=== PATIENT | female | born 1935 | race Caucasian/White ===

== ENCOUNTER 2021-12-14 13:21 | Emergency (ER) | payer OTHER, MEDICAID ==
[~2021-12-14] VITALS: Ht 154.9 cm; Wt 63.5 kg
--- NOTE | 2021-12-14 13:30 | NUR ---
pt c/o SOB, 2+ edema RLE x2 weeks . Seen by Placed on N/C 2L, threat monitoring analyst. Pt denies pain at this time.
[2021-12-14 15:05] LABS: HEMATOCRIT 43.4 % (31.2-41.9); MEAN CORPUSCULAR VOLUME 95.1 fL (75.5-95.3); PLATELET COUNT (AUTO) 152 K/uL (179-408)
[2021-12-14] MEDS ORDERED: FAMO40TA7 PO (15:08)
[2021-12-14] MEDS ORDERED: MONT10TA22 PO (15:08)
[2021-12-14] MEDS ORDERED: ATOR10TA PO (15:08)
[2021-12-14] MEDS ORDERED: PRED20TA PO (15:08)
[2021-12-14] MEDS ORDERED: PANT40TA49 PO (15:08)
[2021-12-14] MEDS ORDERED: LORA0.5T48 PO (15:08)
[2021-12-14] MEDS ORDERED: SITA1TAB2 PO (15:08)
[2021-12-14] MEDS ORDERED: ALBUTEROL SULFATE 2.5 MG/3 ML NEBU ONE (15:13)
[2021-12-14] MEDS ORDERED: ALBUTEROL SULFATE 2.5 MG/3 ML NEBU NEB ONE (15:15)
[2021-12-14] MEDS ORDERED: IV NORMAL SALINE 250 ML IV ONE (15:18)
[2021-12-14] MEDS ORDERED: SWABABLE VALVE TRANSFER SET EA MC ONE (15:18)
[2021-12-14] MEDS ORDERED: IOHEXOL 350 100 ML INFUS..BTL ONE (15:18)
[2021-12-14 15:27] LABS: CARBON DIOXIDE 33 mmol/L (21-32); CHLORIDE 104 mmol/L (98-107); CREATININE 0.8 mg/dL (0.6-1.3); GLUCOSE 196 mg/dL (74-106); POTASSIUM 4.3 mmol/L (3.5-5.1); UREA NITROGEN, BLOOD 6 mg/dL (7-18)
[2021-12-14 15:44] LABS: ALANINE AMINOTRANSFERASE 41 U/L (14-59); ALKALINE PHOSPHATASE 33 U/L (50-136); ASPARTATE AMINOTRANSFERASE 19 U/L (15-37); BILIRUBIN,DIRECT 0.1 mg/dL (0.0-0.2); BILIRUBIN,TOTAL 0.3 mg/dL (0.2-1.0); TOTAL PROTEIN, SERUM 6.6 g/dL (6.4-8.2)
--- NOTE | 2021-12-14 16:38 | NUR ---
MD AT BEDSIDE TO DISCUSS PLAN OF CARE AND RESULTS TO PT.
[2021-12-14] MEDS ORDERED: DOXY100C5 PO (16:44)
--- NOTE | 2021-12-14 17:50 | NUR ---
Patient discharged to home in stable condition. Written and verbal after care instructions given. Patient verbalizes understanding of instructions. Stressed follow up or return to ER for worsening s/s.
[2021-12-14 18:07] VITALS: BP 147/80
== END 2021-12-14 17:51 | disposition home or self-care (01) ==
LOC: ER 13:21
DX: M79.89 Other specified soft tissue disorders (principal); J44.0 Chronic obstructive pulmonary disease with (acute) lower respiratory infection; J18.9 Pneumonia, unspecified organism; Z99.81 Dependence on supplemental oxygen; Z79.899 Other long term (current) drug therapy; Z91.041 Radiographic dye allergy status
CPT/HCPCS: 36415; 71045; 84484; 85025; 93005; A4663; Q9967

== ENCOUNTER 2022-01-07 18:03 | Inpatient (IN) | payer OTHER ==
[~2022-01-07] VITALS: Ht 157.5 cm; Wt 68.0 kg
[~2022-01-07 18:03] MED LIST: ATOR10TA PO; DOXY100C5 PO; FAMO40TA7 PO; LORA0.5T48 PO; MONT10TA22 PO; PANT40TA49 PO; PRED20TA PO; SITA1TAB2 PO
[2022-01-07] MEDS ORDERED: IPRATROPIUM BROMIDE 0.5 MG/2.5 ML NEBU NEB STA (18:48)
[2022-01-07] MEDS ORDERED: ALBUTEROL SULFATE 2.5 MG/3 ML NEBU NEB STA (18:48)
[2022-01-07] MEDS ORDERED: predniSONE 10 MG TABLET PO ONE (19:00)
[2022-01-07] MEDS ORDERED: ALBUTEROL SULFATE 2.5 MG/ 0.5 ML NEBU ONE (19:01)
[2022-01-07] MEDS ORDERED: IPRATROPIUM BROMIDE 0.5 MG/2.5 ML NEBU ONE ×2 (19:02→20:32)
[2022-01-07] MEDS ORDERED: ALBUTEROL SULFATE 2.5 MG/3 ML NEBU ONE ×3 (19:02→20:32)
[2022-01-07] MEDS ORDERED: ALBU2.5V13 IH (19:06)
[2022-01-07] MEDS ORDERED: IPRA12.9 INH (19:06)
[2022-01-07 19:31] LABS: HEMATOCRIT 40.6 % (31.2-41.9); MEAN CORPUSCULAR HEMOGLOBIN 31.3 uug (24.7-32.8); MEAN CORPUSCULAR VOLUME 95.6 fL (75.5-95.3); PLATELET COUNT (AUTO) 159 K/uL (179-408)
[2022-01-07] MEDS ORDERED: predniSONE 20 MG TABLET ONE (19:37)
[2022-01-07 19:44] LABS: CARBON DIOXIDE 30 mmol/L (21-32); CHLORIDE 103 mmol/L (98-107); CREATININE 0.8 mg/dL (0.6-1.3); GLUCOSE 197 mg/dL (74-106); POTASSIUM 4.3 mmol/L (3.5-5.1); UREA NITROGEN, BLOOD 7 mg/dL (7-18)
[2022-01-07] MEDS ORDERED: levoFLOXacin 750 MG TABLET PO ONE (19:45)
[2022-01-07 19:54] LABS: ALANINE AMINOTRANSFERASE 34 U/L (14-59); ALKALINE PHOSPHATASE 33 U/L (50-136); ASPARTATE AMINOTRANSFERASE 11 U/L (15-37); BILIRUBIN,DIRECT < 0.1 mg/dL (0.0-0.2); BILIRUBIN,TOTAL 0.3 mg/dL (0.2-1.0); TOTAL PROTEIN, SERUM 6.1 g/dL (6.4-8.2)
[2022-01-07] MEDS ORDERED: levoFLOXacin 750 MG TABLET ONE (20:06)
[2022-01-07] MEDS ORDERED: FUROSEMIDE 20 MG/2 ML VIAL IV ONE (20:15)
[2022-01-07 20:25] LABS: *BILIRUBIN,URIN NEGATIVE (NEGATIVE); *BLOOD, URINE NEGATIVE (NEGATIVE); *CLARITY,URINE CLEAR (CLEAR); *COLOR,URINE YELLOW (YELLOW); *KETONES,URINE NEGATIVE (NEGATIVE); *UROBILINOGEN,URINE 0.2 E.U./dl (NORMAL); LEUKOCYTE ESTERASE ,URINE NEGATIVE (NEGATIVE); NITRITE, URINE NEGATIVE (NEGATIVE); UGLUCOSE TRACE (NEGATIVE)
[2022-01-07] MEDS ORDERED: FUROSEMIDE 20 MG/2 ML VIAL ONE (20:43)
[2022-01-07] MEDS ORDERED: ACETAMINOPHEN 650 MG/20.3 ML LIQUID UDC PO PRN (23:45)
[2022-01-07] MEDS ORDERED: ALBUTEROL SULFATE 1.25 MG/3 ML NEBU NEB PRN (23:45)
[2022-01-07] MEDS ORDERED: ONDANSETRON 4 MG/2 ML VIAL IV PRN (23:45)
[2022-01-08] MEDS: methylPREDNISolone SOD SUCC 40 MG/ML VIAL IV SCH ×4 (01:41→17:48)
[2022-01-08 01:45] VITALS: BP 153/77
--- NOTE | 2022-01-08 01:50 | NUR ---
TRANSFERED TO 3RD FLOOR.
--- NOTE | 2022-01-08 02:00 | NUR ---
[id number] PT A/OX4-SPAN AND ANDORRAN-SPEAKING. VS HAVE BEEN STABLE. IV I/P VIA RIGHT ARM-H.L. PT HAS BEEN ON O2 2L/NC. POX HAS BEEN 96. PT HAS SOB WITH EXERTION. PT HAS DISPO FOR ADMIT TO TELE. PT INFORMED. REPORT CALLED TO STAN [facility]OOK. PT'S DAUGHTER HAS BEEN AT BEDSIDE. PT RECEIVED ER-MED/EVAL AND TX. PT ADMITTED TO [facility] WITH 02 AND ACLS PROTOCOL. IQRA CHAVIS IS AWARE. GREG PIERCE
[2022-01-08 04:00] VITALS: BP 170/78
[2022-01-08] MEDS ORDERED: ACETAMINOPHEN 325 MG TABLET PO PRN (05:45)
[2022-01-08] MEDS: PANTOPRAZOLE SODIUM 40 MG TABLET.DR PO SCH (06:53)
[2022-01-08] MEDS ORDERED: DEXTROSE 50% 50 ML DISP.SYRIN IV PRN (07:15)
[2022-01-08] MEDS ORDERED: IPRATROPIUM BROMIDE 0.5 MG/2.5 ML NEBU NEB PRN (07:15)
--- NOTE | 2022-01-08 07:15 | NUR ---
PATIENT ADMITTED VIA ED ACCOMPANIED BY DAUGHTER ON O2 MILD SOB NOTED. ADMISSION PROCESS COMPLETED . PT NOTED WITH SOME IMPROVEMENT SINCE ADMISSION AAOX4 SBP NOTE 140'S -150'S NOT ON BP MEDS AT HOME. EDEMA TO BLE IMPROVING.
[2022-01-08] MEDS: BLOOD SUGAR DIAGNOSTIC 1 EACH STRIP VI SCH ×4 (07:30→21:24)
[2022-01-08 07:34] LABS: HEMATOCRIT 40.7 % (31.2-41.9); MEAN CORPUSCULAR HEMOGLOBIN 31.1 uug (24.7-32.8); MEAN CORPUSCULAR VOLUME 95.6 fL (75.5-95.3); PLATELET COUNT (AUTO) 149 K/uL (179-408)
[2022-01-08 08:07] LABS: THYROID STIMULATING HORMONE 0.582 mIU/mL (0.358-3.740)
[2022-01-08 08:09] LABS: BILIRUBIN,TOTAL 0.2 mg/dL (0.2-1.0); CREATININE 0.9 mg/dL (0.6-1.3); MAGNESIUM 1.9 mg/dL (1.8-2.4); PHOSPHOROUS 4.3 mg/dL (2.5-4.9); POTASSIUM 4.7 mmol/L (3.5-5.1); TOTAL PROTEIN, SERUM 6.2 g/dL (6.4-8.2)
[2022-01-08] MEDS: METFORMIN XR 500 MG TAB.SR.24H PO SCH (09:55)
[2022-01-08] MEDS: LINAGLIPTIN 5 MG TABLET PO SCH (09:56)
[2022-01-08 11:57] VITALS: BP 168/82
[2022-01-08] MEDS: IPRATROPIUM BROMIDE 0.5 MG/2.5 ML NEBU NEB SCH ×3 (13:57→18:17)
[2022-01-08] MEDS: ALBUTEROL SULFATE 2.5 MG/3 ML NEBU NEB SCH ×3 (13:59→18:17)
[2022-01-08] MEDS ORDERED: SITA1TBM4 PO (14:11)
[2022-01-08] MEDS ORDERED: SERT50TA PO (14:15)
[2022-01-08] MEDS ORDERED: ALBU2.5V38 IH (14:15)
[2022-01-08 15:41] VITALS: BP 121/63
[2022-01-08] MEDS: INSULIN REGULAR, HUMAN 300 UNIT/3 ML VIAL SQ PRN ×2 (17:54→21:32)
[2022-01-08] MEDS ORDERED: MONTELUKAST SODIUM 10 MG TABLET PO SCH (18:00)
[2022-01-08] MEDS ORDERED: LORAZEPAM 0.5 MG TABLET PO ONE (19:40)
[2022-01-08 20:00] VITALS: BP 144/72
[2022-01-08] MEDS: ATORVASTATIN 10 MG TABLET PO SCH (21:21)
[2022-01-09] VITALS: BP 113/52
[2022-01-09] MEDS: methylPREDNISolone SOD SUCC 40 MG/ML VIAL IV SCH ×4 (00:06→17:33)
[2022-01-09 05:04] VITALS: BP 148/81
[2022-01-09] MEDS: PANTOPRAZOLE SODIUM 40 MG TABLET.DR PO SCH (06:35)
[2022-01-09] MEDS: ALBUTEROL SULFATE 2.5 MG/3 ML NEBU NEB SCH (07:29)
[2022-01-09] MEDS: IPRATROPIUM BROMIDE 0.5 MG/2.5 ML NEBU NEB SCH ×3 (07:29→20:23)
[2022-01-09] MEDS: BLOOD SUGAR DIAGNOSTIC 1 EACH STRIP VI SCH ×4 (07:30→20:53)
[2022-01-09 07:38] LABS: HEMATOCRIT 40.5 % (31.2-41.9); MEAN CORPUSCULAR VOLUME 95.4 fL (75.5-95.3); PLATELET COUNT (AUTO) 153 K/uL (179-408)
[2022-01-09 08:00] LABS: CREATININE 0.7 mg/dL (0.6-1.3); MAGNESIUM 2.1 mg/dL (1.8-2.4); PHOSPHOROUS 4.7 mg/dL (2.5-4.9); POTASSIUM 4.2 mmol/L (3.5-5.1)
[2022-01-09] MEDS: METFORMIN XR 500 MG TAB.SR.24H PO SCH (08:52)
[2022-01-09] MEDS: LINAGLIPTIN 5 MG TABLET PO SCH (08:52)
[2022-01-09] MEDS ORDERED: levoFLOXacin 500 MG/D5W 500 MG in PREMIXED 1 EACH IV SCH (10:00)
[2022-01-09] MEDS ORDERED: VANCOMYCIN IV 1,000 MG in IV DEXTROSE 5% 250 ML IV SCH (11:00)
[2022-01-09 11:09] VITALS: BP 133/82
[2022-01-09] MEDS: levoFLOXacin 750MG/D5W 750 MG in PREMIXED 1 EACH IV SCH ×2 (11:41→11:43)
[2022-01-09] MEDS ORDERED: PIPERACILLIN SODIUM/TAZOBACTAM 3.375 G in IV DEXTROSE 5% 100 ML IV SCH (14:00)
[2022-01-09] MEDS ORDERED: PIPERACILLIN SODIUM/TAZOBACTAM 3.375 G in IV DEXTROSE 5% 50 ML IV SCH (14:00)
[2022-01-09] MEDS: ALBUTEROL SULFATE 1.25 MG/3 ML NEBU NEB SCH ×2 (14:11→20:23)
[2022-01-09 15:30] VITALS: BP 128/57
[2022-01-09] MEDS: INSULIN REGULAR, HUMAN 300 UNIT/3 ML VIAL SQ PRN (17:38)
[2022-01-09] MEDS ORDERED: levoFLOXacin 750MG/D5W 750 MG in PREMIXED 1 EACH IV SCH (20:00)
[2022-01-09 20:19] VITALS: BP 131/71
[2022-01-09] MEDS: ATORVASTATIN 10 MG TABLET PO SCH (20:53)
[2022-01-09] MEDS ORDERED: MONTELUKAST SODIUM 10 MG TABLET PO SCH (21:00)
[2022-01-10 00:35] VITALS: BP 145/77
[2022-01-10] MEDS: ALBUTEROL SULFATE 1.25 MG/3 ML NEBU NEB SCH ×4 (02:13→21:09)
[2022-01-10] MEDS: IPRATROPIUM BROMIDE 0.5 MG/2.5 ML NEBU NEB SCH ×4 (02:13→21:08)
[2022-01-10 04:00] VITALS: BP 117/61
[2022-01-10] MEDS: PANTOPRAZOLE SODIUM 40 MG TABLET.DR PO SCH (06:32)
[2022-01-10] MEDS: BLOOD SUGAR DIAGNOSTIC 1 EACH STRIP VI SCH ×3 (06:32→16:52)
[2022-01-10] MEDS: INSULIN REGULAR, HUMAN 300 UNIT/3 ML VIAL SQ PRN ×3 (06:33→16:53)
[2022-01-10 07:45] LABS: HEMATOCRIT 39.2 % (31.2-41.9); MEAN CORPUSCULAR HEMOGLOBIN 31.3 uug (24.7-32.8); MEAN CORPUSCULAR VOLUME 95.6 fL (75.5-95.3); PLATELET COUNT (AUTO) 149 K/uL (179-408)
[2022-01-10 08:00] VITALS: BP 154/80
[2022-01-10 08:06] LABS: CREATININE 0.8 mg/dL (0.6-1.3); MAGNESIUM 2.1 mg/dL (1.8-2.4); PHOSPHOROUS 4.8 mg/dL (2.5-4.9)
[2022-01-10] MEDS: methylPREDNISolone SOD SUCC 40 MG/ML VIAL IV SCH (09:08)
[2022-01-10] MEDS: LINAGLIPTIN 5 MG TABLET PO SCH (09:08)
[2022-01-10] MEDS: METFORMIN XR 500 MG TAB.SR.24H PO SCH (09:09)
[2022-01-10] MEDS ORDERED: VANCOMYCIN IV 1,000 MG in IV DEXTROSE 5% 250 ML IV SCH ×4 (11:00)
[2022-01-10 12:00] VITALS: BP 145/72
[2022-01-10] MEDS ORDERED: LEVO500T90 PO (12:31)
[2022-01-10] MEDS ORDERED: PRED20TA PO (12:31)
--- NOTE | 2022-01-10 12:35 | NUR ---
PER THE INFORMATION SCIENTIST PATIENT HAS 5 BEATS OF PAUSE/VTACH CHECKED ON HER DENIES DISCOMFORTS VITALS CHECKED WITHIN NORMAL LIMITS REMAIN ON O2 WITH NO SHORTNESS OF BREATH JUAN R WYATT STATED FOR DR YBARRA TO SEE PATIENT TODAY TO CLEAR HER FOR DISCHARGE
--- NOTE | 2022-01-10 15:42 | NUR ---
WAITING FOR DR YBARRA DISCHARGE ORDER NOTED DAUGHTER AT HER BEDSIDE AND AWARE RE PLAN OF CARE.
[2022-01-10 16:00] VITALS: BP 120/64
[2022-01-10 16:15] VITALS: BP 129/67
--- NOTE | 2022-01-10 17:38 | NUR ---
dr connelly white sugar boiler here seen patient and stated that it was okay for patient to be discharged today daughter casper at the bedside prepping her for discharge.
--- NOTE | 2022-01-10 18:26 | NUR ---
DISCHARGE INSTRUCTIONS GIVEN TO PATIENT AND HER DAUGHTER MONSTER AND INSTRUCTED ON TAPERING PREDNISONE AND FINISHING HER ANTIBIOTICS ORDERED AND TO FOLLOW UP WITH HER PRIMARY DOCTOR WITHIN THE NEXT ONE WEEK AND THEY EXPRESSED UNDERSTANDING PATIENTS DAUGHTER STATED THAT SINCE PATIENT IS STILL EATING WILL WAIT FOR HER TO FINISH BEFORE SHE LEAVES ENDORSED.
--- NOTE | 2022-01-10 20:18 | NUR ---
Discharge home with daughter Eva in stable condition, instructed to pickle pumper prescription from [facility] pharmacy and to follow up with her primary doctor within the next week, stated understanding.
[2022-01-11] MEDS ORDERED: predniSONE 20 MG TABLET PO SCH (08:00)
== END 2022-01-10 23:39 | disposition home or self-care (01) | DRG 189 ==
LOC: ER 18:03 → TELE3 23:30
PROVIDERS: ADMIT Registered Nurse; ATTEND Registered Nurse
DX: J96.01 Acute respiratory failure with hypoxia (principal); J44.1 Chronic obstructive pulmonary disease with (acute) exacerbation; I47.20 Ventricular tachycardia, unspecified; J45.901 Unspecified asthma with (acute) exacerbation; J44.0 Chronic obstructive pulmonary disease with (acute) lower respiratory infection; J84.10 Pulmonary fibrosis, unspecified; E11.9 Type 2 diabetes mellitus without complications; K21.9 Gastro-esophageal reflux disease without esophagitis; Z87.01 Personal history of pneumonia (recurrent); Z88.0 Allergy status to penicillin; J20.9 Acute bronchitis, unspecified; Z20.822 Contact with and (suspected) exposure to COVID-19; Z99.81 Dependence on supplemental oxygen
CPT/HCPCS: 36415; 71045; 71250; 83735; 84100; 84443; 84484; 85025; 87400; 93005; 93307; 94640; 97161; A4663; G0378; J1815; J1940; J1956; J2920; J3370; J3590; J7050; J7512

== ENCOUNTER 2022-01-26 16:27 | Inpatient (IN) | payer OTHER ==
[~2022-01-26] VITALS: Ht 160 cm; Wt 68.0 kg
[~2022-01-26 16:27] MED LIST changes: +ALBU2.5V38 IH; -DOXY100C5 PO; +IPRA12.9 INH; +LEVO500T90 PO; -LORA0.5T48 PO; +SERT50TA PO; -SITA1TAB2 PO; +SITA1TBM4 PO
[2022-01-26] MEDS ORDERED: ACETAMINOPHEN ES 500 MG TABLET PO ONE (17:00)
[2022-01-26] MEDS ORDERED: ALBUTEROL SULFATE 2.5 MG/3 ML NEBU NEB ONE (17:00)
[2022-01-26] MEDS ORDERED: ALBUTEROL SULFATE 2.5 MG/3 ML NEBU ONE (17:08)
[2022-01-26 17:22] LABS: HEMATOCRIT 40.8 % (31.2-41.9); MEAN CORPUSCULAR HEMOGLOBIN 30.5 uug (24.7-32.8); MEAN CORPUSCULAR VOLUME 95.3 fL (75.5-95.3); PLATELET COUNT (AUTO) 110 K/uL (179-408)
[2022-01-26] MEDS ORDERED: ACETAMINOPHEN ES 500 MG TABLET ONE (17:33)
[2022-01-26 17:34] LABS: CARBON DIOXIDE 33 mmol/L (21-32); CHLORIDE 100 mmol/L (98-107); CREATININE 0.9 mg/dL (0.6-1.3); GLUCOSE 247 mg/dL (74-106); POTASSIUM 4.4 mmol/L (3.5-5.1); UREA NITROGEN, BLOOD 7 mg/dL (7-18)
[2022-01-26 17:46] LABS: ALANINE AMINOTRANSFERASE 43 U/L (14-59); ALKALINE PHOSPHATASE 31 U/L (50-136); ASPARTATE AMINOTRANSFERASE 17 U/L (15-37); BILIRUBIN,DIRECT 0.1 mg/dL (0.0-0.2); BILIRUBIN,TOTAL 0.3 mg/dL (0.2-1.0)
--- NOTE | 2022-01-26 19:15 | NUR ---
AMINA ABRAMS RN
[2022-01-26] MEDS ORDERED: AZITHROMYCIN IV 500 MG in IV DEXTROSE 5% 250 ML IV ONE (22:15)
[2022-01-26] MEDS ORDERED: CEFEPIME HCL 2 G in IV DEXTROSE 5% 100 ML IV ONE (22:15)
[2022-01-26] MEDS ORDERED: VANCOMYCIN 1G/D5W 200 ML PIGGYBACK IV ONE (22:15)
[2022-01-26] MEDS ORDERED: CEFEPIME HCL 1 G VIAL ONE (22:18)
[2022-01-26] MEDS ORDERED: AZITHROMYCIN 500MG/ D5W 250ML IVPB **ER PYXIS ONLY IV ONE (22:18)
--- NOTE | 2022-01-26 22:26 | NUR ---
Patient has been accepted by Dr Santos
[2022-01-26] MEDS ORDERED: ACETAMINOPHEN 325 MG TABLET PO PRN (22:30)
[2022-01-26] MEDS ORDERED: MAGNESIUM HYDROXIDE 30 ML LIQUID UDC PO PRN (22:30)
[2022-01-26] MEDS ORDERED: REMEDY ESSENTIAL ZINC PASTE 113 GM TP PRN (22:30)
[2022-01-26] MEDS ORDERED: ONDANSETRON 4 MG/2 ML VIAL IV PRN (22:30)
--- NOTE | 2022-01-26 22:45 | NUR ---
Pernieal care performed. Patient had large void in brief.
[2022-01-26 23:05] VITALS: BP 146/54
--- NOTE | 2022-01-26 23:29 | NUR ---
Called third floor to give report to Reina PIERCE. Waiting for call back
--- NOTE | 2022-01-26 23:43 | NUR ---
Report given to Reina PIERCE third floor
--- NOTE | 2022-01-27 00:02 | NUR ---
Pt. admitted to TELE room 302 , under care of Dr. Santos Belongs List completed Vikas RN aware of patient's arrival
[2022-01-27] MEDS: IPRATROPIUM BROMIDE 0.5 MG/2.5 ML NEBU NEB PRN ×3 (00:44→16:28)
[2022-01-27] MEDS: ALBUTEROL SULFATE 2.5 MG/3 ML NEBU IH PRN ×3 (00:45→16:28)
[2022-01-27] MEDS: ENOXAPARIN SODIUM 40 MG/0.4 ML DISP.SYRIN SQ SCH ×2 (02:25→21:34)
[2022-01-27 04:00] VITALS: BP 146/70
[2022-01-27] MEDS: PANTOPRAZOLE SODIUM 40 MG TABLET.DR PO SCH (06:36)
[2022-01-27] MEDS: methylPREDNISolone SOD SUCC 40 MG/ML VIAL IV SCH ×3 (06:52→22:04)
[2022-01-27 07:00] LABS: HEMATOCRIT 38.1 % (31.2-41.9); MEAN CORPUSCULAR HEMOGLOBIN 31.1 uug (24.7-32.8); PLATELET COUNT (AUTO) 96 K/uL (179-408)
[2022-01-27 07:22] LABS: ALANINE AMINOTRANSFERASE 39 U/L (14-59); ALKALINE PHOSPHATASE 22 U/L (50-136); ASPARTATE AMINOTRANSFERASE 19 U/L (15-37); BILIRUBIN,TOTAL 0.3 mg/dL (0.2-1.0); CARBON DIOXIDE 37 mmol/L (21-32); CHLORIDE 105 mmol/L (98-107); CREATININE 0.5 mg/dL (0.6-1.3); GLUCOSE 78 mg/dL (74-106); PHOSPHOROUS 4.1 mg/dL (2.5-4.9); POTASSIUM 3.6 mmol/L (3.5-5.1); TOTAL PROTEIN, SERUM 5.4 g/dL (6.4-8.2); UREA NITROGEN, BLOOD 6 mg/dL (7-18)
[2022-01-27] MEDS ORDERED: methylPREDNISolone SOD SUCC 40 MG/ML VIAL IV SCH (09:00)
[2022-01-27] MEDS ORDERED: [UNRECOGNIZED DRUG - OTHER] PO SCH (09:00)
[2022-01-27] MEDS ORDERED: SITAGLIPTIN PHOS PO SCH (09:00)
[2022-01-27] MEDS ORDERED: METFORMIN HCL PO SCH (09:00)
[2022-01-27] MEDS: METFORMIN XR 500 MG TAB.SR.24H PO SCH (09:54)
[2022-01-27] MEDS: SERTRALINE HCL 50 MG TABLET PO SCH (09:55)
[2022-01-27] MEDS: LINAGLIPTIN 5 MG TABLET PO SCH (09:55)
[2022-01-27 12:00] VITALS: BP 136/89
[2022-01-27 12:40] LABS: LYMPHOCYTES % (MANUAL) 23 % (20-40); MONOCYTES % (MANUAL) 10 % (2-10); NEUTROPHILS % (MANUAL) 67 % (42-75)
[2022-01-27] MEDS: DILTIAZEM HCL CD 120 MG CAP.SR.24H PO SCH (12:45)
[2022-01-27 16:00] VITALS: BP 145/67
[2022-01-27] MEDS: MONTELUKAST SODIUM 10 MG TABLET PO SCH (18:00)
--- NOTE | 2022-01-27 18:54 | NUR ---
DAUGHTER JHON [phone] STATES PT IS ALLERGIC TO CONTRAST REQUESTING ATIVAN FOR CTA TO BE DONE D.DIMER ELEVATED SPOKE WITH REGARDING FAMILY CONCERNS. WILL UPDATE FAMILY ON ABX TREATMENT.
[2022-01-27 20:00] VITALS: BP 149/69
[2022-01-27] MEDS: ATORVASTATIN 10 MG TABLET PO SCH (21:31)
[2022-01-27] MEDS: AZITHROMYCIN IV 500 MG in IV DEXTROSE 5% 250 ML IV SCH (21:32)
[2022-01-27] MEDS: VANCOMYCIN IV 1,000 MG in IV DEXTROSE 5% 250 ML IV SCH (23:58)
[2022-01-28] VITALS: BP 144/74
[2022-01-28] MEDS: IPRATROPIUM BROMIDE 0.5 MG/2.5 ML NEBU NEB PRN ×3 (00:16→18:09)
[2022-01-28] MEDS: ALBUTEROL SULFATE 2.5 MG/3 ML NEBU IH PRN ×3 (00:16→18:09)
[2022-01-28 04:06] VITALS: BP 132/68
[2022-01-28] MEDS: methylPREDNISolone SOD SUCC 40 MG/ML VIAL IV SCH ×3 (06:24→22:07)
[2022-01-28] MEDS: PANTOPRAZOLE SODIUM 40 MG TABLET.DR PO SCH (06:24)
--- NOTE | 2022-01-28 06:56 | NUR ---
PATIENT IN BED AWAKE AND ALERT IN STABLE CONDITION. ABLE TO MAKE NEEDS KNOWN. NEW IV LINE GAUGE#20 ON LEFT FOREARM INTACT AND PATENT. IV ATB GIVEN ORDERED. NO ADVERSE REACTION NOTED. PATIENT KEPT CLEAN DRY AND COMFORTABLE.
[2022-01-28] MEDS: METFORMIN XR 500 MG TAB.SR.24H PO SCH (09:32)
[2022-01-28] MEDS: DILTIAZEM HCL CD 120 MG CAP.SR.24H PO SCH (09:32)
[2022-01-28] MEDS: LINAGLIPTIN 5 MG TABLET PO SCH (09:32)
[2022-01-28] MEDS: SERTRALINE HCL 50 MG TABLET PO SCH (09:32)
[2022-01-28 11:46] VITALS: BP 144/60
[2022-01-28 16:00] VITALS: BP 141/63
[2022-01-28] MEDS: MONTELUKAST SODIUM 10 MG TABLET PO SCH (18:57)
[2022-01-28 20:00] VITALS: BP 141/67
[2022-01-28] MEDS: AZITHROMYCIN IV 500 MG in IV DEXTROSE 5% 250 ML IV SCH (20:29)
[2022-01-28] MEDS: ATORVASTATIN 10 MG TABLET PO SCH (20:29)
[2022-01-28] MEDS: ENOXAPARIN SODIUM 40 MG/0.4 ML DISP.SYRIN SQ SCH (20:29)
[2022-01-28] MEDS: VANCOMYCIN IV 1,000 MG in IV DEXTROSE 5% 250 ML IV SCH (23:38)
[2022-01-29 04:00] VITALS: BP 137/78
--- NOTE | 2022-01-29 04:49 | NUR ---
Patient AAOX4, she has shown no sign of acute respiratory distress during shift. She had some episode of nonproductive cough. She tolerated well all of her medications. New IV has been inserted due to infiltration. Patient is stable, and interact appropriately with staffs, will continue to monitor patient for safety.
[2022-01-29] MEDS: methylPREDNISolone SOD SUCC 40 MG/ML VIAL IV SCH (06:14)
[2022-01-29] MEDS: PANTOPRAZOLE SODIUM 40 MG TABLET.DR PO SCH (06:14)
[2022-01-29 07:41] LABS: ABG BASE EXCESS 4.8 mmol/L; ABG HCO3 29.7 mmol/L; ABG PCO2 44.8 mmHg (35.0-45.0); ABG PH 7.439 (7.350-7.450); ABG PO2 87.2 mmHg (75.0-100.0); ABG SITE RIGHT BRACHIAL; ABG TOTAL HEMOGLOBIN 14.1 G/dL (12.0-16.0); COHb 0.6 % (0.5-1.5); O2Hb 96.7 % (94.0-97.0); VENT MODE Nasal Cannula
[2022-01-29 07:49] LABS: HEMATOCRIT 38.7 % (31.2-41.9); MEAN CORPUSCULAR VOLUME 94.8 fL (75.5-95.3); PLATELET COUNT (AUTO) 114 K/uL (179-408)
[2022-01-29 08:03] LABS: CREATININE 0.6 mg/dL (0.6-1.3); MAGNESIUM 2.2 mg/dL (1.8-2.4); PHOSPHOROUS 3.8 mg/dL (2.5-4.9); POTASSIUM 4.2 mmol/L (3.5-5.1)
[2022-01-29] MEDS: SERTRALINE HCL 50 MG TABLET PO SCH (09:03)
[2022-01-29] MEDS: LINAGLIPTIN 5 MG TABLET PO SCH (09:04)
[2022-01-29] MEDS: METFORMIN XR 500 MG TAB.SR.24H PO SCH (09:04)
[2022-01-29] MEDS: DILTIAZEM HCL CD 120 MG CAP.SR.24H PO SCH (09:05)
[2022-01-29] MEDS ORDERED: AZIT250T13 PO (10:23)
[2022-01-29] MEDS ORDERED: DILT120C87 PO (10:23)
[2022-01-29] MEDS ORDERED: TIOT18CA3 INH (10:23)
[2022-01-29] MEDS ORDERED: FLUT1DIS28 INH (10:23)
--- NOTE | 2022-01-29 10:49 | NUR ---
WOUND CARE CONSULT: PT PRESENTS WITH SOME DISCOLORATION ON ARMS AND LEGS. PT ABLE TO ASSIST WITH TURNING AND REPOSITIONING IN BED. WILL SEE PRN.
[2022-01-29 10:59] VITALS: BP 119/68
[2022-01-29] MEDS: IPRATROPIUM BROMIDE 0.5 MG/2.5 ML NEBU NEB PRN (11:56)
[2022-01-29] MEDS: ALBUTEROL SULFATE 2.5 MG/3 ML NEBU IH PRN (11:57)
--- NOTE | 2022-01-29 12:00 | NUR ---
EATING LUNCH. PREPARED FOR DISCHARGE. DAUGHTER AT BEDSIDE.
--- NOTE | 2022-01-29 14:30 | NUR ---
DISCHARGED VIA W/C, ACCOMPANIED BY FIDENCIO ACHARYA TO DAUGHTER IN AUTO. NO C/O DISCOMFORT.
[2022-01-29] MEDS ORDERED: methylPREDNISolone SOD SUCC 40 MG/ML VIAL IV SCH (21:00)
== END 2022-01-29 14:25 | disposition home or self-care (01) | DRG 193 ==
LOC: ER 16:27 → TELE3 21:25 → MEDSURG3 01-28 08:59
PROVIDERS: ADMIT Internal Medicine; ATTEND Internal Medicine
DX: J18.9 Pneumonia, unspecified organism (principal); J96.21 Acute and chronic respiratory failure with hypoxia; I47.1 Supraventricular tachycardia; J44.1 Chronic obstructive pulmonary disease with (acute) exacerbation; E11.9 Type 2 diabetes mellitus without complications; J84.10 Pulmonary fibrosis, unspecified; K21.9 Gastro-esophageal reflux disease without esophagitis; Z20.822 Contact with and (suspected) exposure to COVID-19; Z79.84 Long term (current) use of oral hypoglycemic drugs; Z87.01 Personal history of pneumonia (recurrent); Z82.5 Family history of asthma and other chronic lower respiratory diseases; Z88.0 Allergy status to penicillin; Z99.81 Dependence on supplemental oxygen
CPT/HCPCS: 36415; 36600; 70030-TC; 71045; 83605; 83735; 84100; 84484; 85025; 85730; 87040; 87400; 93005; 94640; A4663; A9150; G0378; J0456; J0692; J1650; J2920; J3370; J3590; J7050